=== PATIENT | female | born 1980 | race Caucasian/White ===

== ENCOUNTER 2020-11-07 20:46 | Emergency (ER) | payer OTHER ==
[~2020-11-07] VITALS: Ht 157.5 cm; Wt 59.0 kg
[2020-11-07] MEDS ORDERED: ACETAMINOPHEN 325MG TABLET PO ONE (22:30)
[2020-11-07 22:54] VITALS: BP 122/90
[2020-11-07] MEDS ORDERED: SULF1TAB48 MT (23:18)
[2020-11-07] MEDS ORDERED: ACET-2708 MT (23:18)
== END 2020-11-07 23:54 | disposition home or self-care (01) ==
LOC: ER 20:46 → EDBD 20:46 → ER 23:54
DX: L72.3 Sebaceous cyst (principal)
CPT/HCPCS: 81025; 99283